=== PATIENT | male | born 1965 | race American Indian/Alaskan Native ===

== ENCOUNTER 2019-04-07 12:01 | Observation (INO) | payer OTHER ==
[2019-04-07] MEDS ORDERED: ONDANSETRON 4 MG ODT TAB PO STA (13:01)
--- NOTE | 2019-04-07 13:07 | Emergency Department Report ---
ED Fall HPI - General Chief Complaint: Fall Stated Complaint: FELL, APOLINAR AND SIDE PAIN Time Seen by Provider: 04/07/19 12:37 Source: patient Mode of arrival: Ambulatory - History of Present Illness Initial Comments: 54-year-old Afro-Bolivian male to emergency Department complaining of pain to his left chest and right knee after slipping and falling into a manhole to shoulder height. Patient states he was ambulating around the whole pulses his footing causing him to fall and landing on his feet striking the left side of his chest on the side of the mandible while falling down. He also reports a few days history of a cough but did notice some blood-tinged green mucus which started after the fall. Pain is worse with palpation and range of motion. Reports no fever, chills, sweats no diarrhea or abdominal pain no foreign travel. MD Complaint: fall -: Sudden When Fall Occurred: [address] Fall Occurred: work Loss of Consciousness: none Prolonged Down Time?: no Symptoms Prior to Fall: none (mechanical) Associated Symptoms: denies: headache, abdominal pain, hematuria, unable to walk, lightheaded, vertigo, confusion - Related Data Allergies Allergy/AdvReac Type Severity Reaction Status Date / Time No Known Allergies Allergy Unverified 04/07/19 12:07 ED Review of Systems ROS: Stated complaint: FELL, APOLINAR AND SIDE PAIN Other details as noted in HPI Comment: All other systems reviewed and negative ED Past Medical Hx - Past Medical History Previous Medical History?: Yes Additional medical history: ETOH and drug abuse - Surgical History Past Surgical History?: Yes Additional Surgical History: bleeding ulcer - Social History Smoking Status: Unknown if ever smoked ED Physical Exam - General Limitations: No Limitations General appearance: alert, in no apparent distress - Head Head exam: Present: atraumatic, normocephalic - Eye Eye exam: Present: normal appearance - ENT ENT exam: Present: mucous membranes moist - Neck Neck exam: Present: normal inspection - Respiratory Respiratory exam: Present: normal lung sounds bilaterally, chest wall tenderness (past medical history left chest wall with a small abrasion to the left flank and the rib torso region. There is mild swelling noted. No lift T's disease or thrills are noted.). Absent: respiratory distress - Cardiovascular Cardiovascular Exam: Present: regular rate, normal rhythm. Absent: systolic murmur, diastolic murmur, rubs, gallop - GI/Abdominal GI/Abdominal exam: Present: soft, normal bowel sounds - Rectal Rectal exam: Present: deferred - Extremities Exam Extremities exam: Present: normal inspection, full ROM, tenderness (there is matt e tenderness and swelling to the right knee pain with range of motion all range of motion gait is antalgic.), normal capillary refill, joint swelling. Absent: pedal edema, calf tenderness - Back Exam Back exam: Present: normal inspection - Neurological Exam Neurological exam: Present: alert, oriented X3, CN II-XII intact, normal gait - Psychiatric Psychiatric exam: Present: normal affect, normal mood - Skin Skin exam: Present: warm, dry, intact, normal color. Absent: rash ED Course Vital Signs 04/07/19 04/07/19 12:07 15:25 Temperature 97.3 F L Pulse Rate 109 H 99 H Respiratory 18 16 Rate Blood Pressure 137/92 Blood Pressure 131/87 [Left] O2 Sat by Pulse 97 98 Oximetry - Consultations Consultation #1: 04/07/19 15:36 Case discussed with general surgery plan is to have the patient admitted for observation and pain control will reevaluate chest x-ray in the morning and utilize incentive spirometry during the hospital visit and upon his discharge ED Medical Decision Making - Radiology Data Radiology results: [place] [address] XRay Report Signed Patient: EVER PARKER MR#: [id number] 35 : 1965 Acct:[id number] Age/Sex: 54 / M ADM Date: 04/07/19 Loc: ED Attending Dr: Ordering Physician: NARINDER SNYDER Date of Service: 04/07/19 Procedure(s): XR knee 4+V RT Accession Number(s): [id number] cc: NARINDER SNYDER Fluoro Time In Minutes: Right knee 4 views INDICATION: Right knee pain following injury IMPRESSION: There is a large right knee effusion. No fracture or subluxation is identified. Signer Name: Lion Yoder MD Signed: 04/07/2019 2:33 PM Workstation Name: [id number] Transcribed By: BC Dictated By: Lion Yoder MD Electronically Authenticated By: Lion Yoder MD Signed Date/Time: 04/07/19 1433 DD/ 1432 [facility] [address] [place] [address] Cat Scan Report Signed Patient: EVER PARKER MR#: [id number] 35 : 1965 Acct:[id number] Age/Sex: 54 / M ADM Date: 04/07/19 Loc: ED Attending Dr: Ordering Physician: NARINDER SNYDER Date of Service: 04/07/19 Procedure(s): CT chest wo con Accession Number(s): [id number] cc: NARINDER SNYDER CT CHEST WITHOUT CONTRAST INDICATION / CLINICAL INFORMATION: chest pain, chest trauma, hemoptysis. TECHNIQUE: Axial CT images were obtained through the chest without contrast. All CT scans at this location are performed using CT dose reduction for ALARA by means of automated exposure control. COMPARISON: None available. FINDINGS: HEART: No significant abnormality. THORACIC AORTA: No significant abnormality. MEDIASTINUM and LOUISE: No significant abnormality. Lungs/pleura: Small left pleural effusion with tiny left apical pneumothorax. There is bibasilar atelectasis, left worse than right. ADDITIONAL FINDINGS: None. UPPER ABDOMEN: Liver appears mildly enlarged. SKELETAL SYSTEM: Mildly displaced left posterior ninth rib fracture. IMPRESSION: 1. Small left hydropneumothorax, as above 2. Displaced left ninth rib fracture posteriorly. Signer Name: Lion Yoder MD Signed: 04/07/2019 2:13 PM Workstation Name: [id number] Transcribed By: BC Dictated By: Lion Yoder MD Electronically Authenticated By: Lion Yoder MD Signed Date/Time: 04/07/19 1413 DD/ 141 TD/TT: - Medical Decision Making 54-year-old -Bolivian male status post trip and fall in a manhole that showed a high resulting in some abrasion and bruising to the left rib region associated with pain. CT scan doesn't support a tiny left apical pneumothorax and he does have a large right knee effusion no fracture to the ED is noted. However there is a mildly displaced left posterior ninth rib fracture that is associated. Discussed the case with general surgery plan is to admit for observation and will repeat chest x-ray in the morning during his hospital visit will have him utilize incentive spirometry and incorporate analgesic control. Dr. Quintana is aware and also agrees of the admission as well. Attending is Dr. Alejandro is aware of the findings of the pneumothorax and admission Critical care attestation.: If time is entered above; I have spent that time in minutes in the direct care of this critically ill patient, excluding procedure time. ED Disposition Clinical Impression: Fracture of rib of left side, Pneumothorax on left Disposition: DC-09 OP ADMIT IP TO THIS HOSP Is pt being admited?: Yes Does the pt Need Aspirin: No Condition: Fair
[2019-04-07] MEDS: MORPHINE 4 MG/1 ML INJ IM ONE ×2 (13:23→15:54)
--- NOTE | 2019-04-07 14:17 | Cat Scan Report ---
CT CHEST WITHOUT CONTRAST INDICATION / CLINICAL INFORMATION: chest pain, chest trauma, hemoptysis. TECHNIQUE: Axial CT images were obtained through the chest without contrast. All CT scans at this location are p erformed using CT dose reduction for ALARA by means of automated exposure control. COMPARISON: None available. FINDINGS: HEART: No significant abnormality. THORACIC AORTA: No significant abnormality. MEDIASTINUM and LOUISE: No significant abnormality. Lungs/pleura: Small left pleural effusion with tiny left apical pneumothorax. There is bibasilar atel ectasis, left worse than right. ADDITIONAL FINDINGS: None. UPPER ABDOMEN: Liver appears mildly enlarged. SKELETAL SYSTEM: Mildly displaced left posterior ninth rib fracture. IMPRESSION: 1. Small left hydropneumothorax, as above 2. Displaced left ninth rib fracture posteriorly. Signer Name: Lion Yoder MD Signed: 04/07/2019 2:13 PM Workstation Name: [id number]
--- NOTE | 2019-04-07 14:37 | XRay Report ---
Right knee 4 views INDICATION: Right knee pain following injury IMPRESSION: There is a large right knee effusion. No fracture or subluxation is identified. Signer Name: Lion Yoder MD Signed: 04/07/2019 2:33 PM Workstation Name: [id number]
[2019-04-07] MEDS ORDERED: ACETAMINOPHEN 325 MG TAB PO PRN (15:41)
[2019-04-07] MEDS ORDERED: ONDANSETRON 4 MG/2 ML INJ IV PRN (15:41)
[2019-04-07] MEDS ORDERED: ALBUTEROL 2.5 MG/3 ML NEBU IH PRN (15:41)
[2019-04-07] MEDS ORDERED: MORPHINE 4 MG/1 ML INJ IV STA (15:48)
--- NOTE | 2019-04-07 16:00 | History and Physical Report ---
History of Present Illness Chief complaint: I fell History of present illness: 54 YO Male no PMH presents to ED for evaluation. Pt states that he was in his usual state of health and was ambulating and fell into a manhole. Pt states that he fell into the manhole striking the left side of his chest. -year-old Afro-Iranian male to emergency Department complaining of pain to his left chest and right knee after slipping and falling into a manhole to shoulder height. Patient transported to [facility]. Pt seen and evaluated in ED and found to have small Left Pneumothorax. Surgery team consulted in ED. Pt placed in observation status and admitted to medical floor. Pt denies fever, chills, CP, Palpitations, Syncope, vertigo, seizure, headache, blurred vision, or recent ill contacts. Past History Past Medical History: other (see hpi) Past Surgical History: Other (endoscopy) Social history: single, smoking, alcohol abuse Family history: no significant family history Medications and Allergies Allergies Allergy/AdvReac Type Severity Reaction Status Date / Time No Known Allergies Allergy Unverified 04/07/19 12:07 Home Medications Medication Instructions Recorded Confirmed Last Taken Type No Known Home Medications [No 04/07/19 04/07/19 Unknown History Reported Home Medications] Active Meds: Active Medications Acetaminophen (Tylenol) 650 mg PO Q4H PRN PRN Reason: Pain MILD(1-3)/Fever >100.5/JERONIMO Albuterol (Proventil) 2.5 mg IH Q4HRT PRN PRN Reason: Shortness Of Breath Ondansetron HCl (Zofran) 4 mg IV Q8H PRN PRN Reason: Nausea And Vomiting Oxycodone/Acetaminophen (Percocet 5/325) 1 tab PO Q6H PRN PRN Reason: Pain, Moderate (4-6) Sodium Chloride (Sodium Chloride Flush Syringe 10 Ml) 10 ml IV BID DANIEL Sodium Chloride (Sodium Chloride Flush Syringe 10 Ml) 10 ml IV PRN PRN PRN Reason: LINE FLUSH Review of Systems Constitutional: no weight loss, no weight gain, no fever, no chills Ears, nose, mouth and throat: no ear pain, no tinnitis, no decreased hearing, no nose pain, no nasal congestion, no sinus pressure Cardiovascular: no chest pain, no orthopnea, no palpitations, no rapid/irregular heart beat, no edema, no lightheadedness, no shortness of breath Respiratory: pain, no cough, no cough with sputum, no excessive sputum, no shortness of breath, no dyspnea on exertion, no wheezing, no pleurisy, no snoring Gastrointestinal: no abdominal pain, no nausea, no vomiting Genitourinary Male: no hematuria, no flank pain, no discharge, no urinary frequency, no urinary hesitancy, no nocturia Rectal: no pain, no incontinence, no bleeding Musculoskeletal: no neck stiffness, no shooting arm pain, no arm numbness/tingling, no low back pain, no leg numbness/tingling, no redness of joints Integumentary: no rash, no pruritis, no redness, no sores, no wounds Neurological: no head injury, no transient paralysis, no numbness, no tingling, no seizures, no syncope, no ataxia Psychiatric: no anxiety, no memory loss, no change in sleep habits, no insomnia, no change in appetite, no suicidal ideation, no disorientation, no hallucinations Endocrine: no cold intolerance, no polyphagia, no polydipsia, no polyuria, no nocturia, no excessive sweating Hematologic/Lymphatic: no easy bruising, no easy bleeding, no lymphadenopathy, no lymphedema Allergic/Immunologic: no urticaria, no allergic rhinitis, no persistent infections, no anaphylaxis Exam - Constitutional Vitals: Temp Pulse Resp BP Pulse Ox 97.3 F L 99 H 16 149/101 99 04/07/19 12:07 04/07/19 15:50 04/07/19 15:50 04/07/19 15:50 04/07/19 15:50 General appearance: Present: mild distress - EENT Eyes: Present: PERRL ENT: hearing intact, clear oral mucosa - Neck Neck: Present: supple, normal ROM - Respiratory Respiratory effort: normal Respiratory: bilateral: CTA - Cardiovascular Heart Sounds: Present: S1 & S2. Absent: rub, click - Extremities Extremities: pulses symmetrical, No edema Peripheral Pulses: within normal limits - Abdominal General gastrointestinal: Present: soft, non-tender, non-distended, normal bowel sounds Male genitourinary: Present: normal - Integumentary Integumentary: Present: clear, warm, dry - Musculoskeletal Musculoskeletal: gait normal, strength equal bilaterally - Psychiatric Psychiatric: appropriate mood/affect, intact judgment & insight - Neurologic Neurologic: CNII-XII intact, moves all extremities Results - Labs CBC & Chem 7: 04/07/19 15:37 Assessment and Plan - Patient Problems (1) Fracture of rib of left side Current Visit: Yes Status: Acute Qualifiers: Encounter type: initial encounter Plan to address problem: Pain control, supportive care (2) Pneumothorax on left Current Visit: Yes Status: Acute Plan to address problem: Chest X ray, repeat cxr in am, supplemental oxygen, incentive spirometry, pulse oximetry. (3) DVT prophylaxis Current Visit: Yes Status: Acute Plan to address problem: SCD to BLE while in be, Pt ambulatory
[2019-04-07 16:07] LABS: Basophils # (Auto) 0.1 K/mm3 (0.0-0.1); Basophils % (Auto) 1.1 % (0.0-1.8); Eosinophils # (Auto) 0.1 K/mm3 (0.0-0.4); Eosinophils % (Auto) 0.9 % (0.0-4.3); Hematocrit 39.8 % (35.5-45.6); Lymphocytes # (Auto) 1.5 K/mm3 (1.2-5.4); Lymphocytes % (Auto) 19.2 % (13.4-35.0); Mean Corpuscular HGB Conc 33 % (32-34); Mean Corpuscular Volume 89 fl (84-94); Monocytes # (Auto) 0.7 K/mm3 (0.0-0.8); Monocytes % (Auto) 8.7 % (0.0-7.3); Platelet Count 160 K/mm3 (140-440); Red Blood Count 4.47 M/mm3 (3.65-5.03); Red Cell Distribution Width 15.5 % (13.2-15.2)
[2019-04-07] MEDS ORDERED: THIAMINE 100 MG, FOLIC ACID 1 MG, MULTIPLE VITAMIN INJ, ADULT 10 ML in SODIUM CHLORIDE ... IV ONE (18:00)
[2019-04-07] MEDS: oxyCODONE /ACETAMINOPHEN 5-325MG TAB PO PRN (19:54)
[2019-04-08] MEDS: guaiFENesin 200 MG TAB PO PRN (04:14)
[2019-04-08] MEDS: oxyCODONE /ACETAMINOPHEN 5-325MG TAB PO PRN ×4 (04:14→21:12)
--- NOTE | 2019-04-08 09:49 | XRay Report ---
CHEST 1 VIEW INDICATION / CLINICAL INFORMATION: follow up for hydropneumothorax. COMPARISON: None available. FINDINGS: SUPPORT DEVICES: None. HEART / MEDIASTINUM: No significant abnormality. LUNGS / PLEURA: Minimal left apical pneumothorax identified. The left ninth rib fracture is again not ed. Signer Name: Lion Yoder MD Signed: 04/08/2019 9:45 AM Workstation Name: [id number]
[2019-04-08] MEDS ORDERED: ENOXAPARIN 60 MG/0.6 ML INJ SUB-Q SCH (10:00)
[2019-04-08] MEDS: ENOXAPARIN 40 MG/0.4 ML INJ SUB-Q SCH (10:29)
[2019-04-08] MEDS ORDERED: MORPHINE 2 MG/1 ML INJ IV PRN (10:31)
--- NOTE | 2019-04-08 10:34 | Progress Note ---
Assessment and Plan Assessment and plan: Left hydropneumothorax s/p fall -Improving per CXR on 04/08 -Patient clinically stable -Continue PRN neb tx Left 9th rib fracture 2/2 fall -Continue PRN narcotics for pain control Left large knee effusion -Will consult orthopedic surgery for possible aspiration -Continue PRN narcotics for pain control DVT prophylaxis with Lovenox Disposition: For discharge when medically stable History Interval history: Patient complained of left rib pain Hospitalist Physical - Constitutional Vitals: Temp Pulse Resp BP Pulse Ox 98.4 F 78 20 125/77 100 04/08/19 05:17 04/08/19 05:17 04/08/19 05:17 04/08/19 05:17 04/08/19 05:17 General appearance: Present: no acute distress, well-nourished - EENT Eyes: Present: PERRL, EOM intact ENT: hearing intact, clear oral mucosa - Neck Neck: Present: supple - Respiratory Respiratory effort: normal Respiratory: bilateral: CTA - Cardiovascular Rhythm: regular Heart Sounds: Present: S1 & S2 - Extremities Extremities: No edema - Abdominal General gastrointestinal: soft, non-tender, non-distended, normal bowel sounds - Integumentary Integumentary: Present: clear, warm, dry - Psychiatric Psychiatric: appropriate mood/affect - Neurologic Neurologic: CNII-XII intact Results - Labs CBC & Chem 7: 04/07/19 15:37 Labs: Laboratory Last Values WBC 7.7 K/mm3 (4.5-11.0) 04/07/19 15:37 RBC 4.47 M/mm3 (3.65-5.03) 04/07/19 15:37 Hgb 13.0 gm/dl (11.8-15.2) 04/07/19 15:37 Hct 39.8 % (35.5-45.6) 04/07/19 15:37 MCV 89 fl (84-94) 04/07/19 15:37 MCH 29 pg (28-32) 04/07/19 15:37 MCHC 33 % (32-34) 04/07/19 15:37 RDW 15.5 % (13.2-15.2) H 04/07/19 15:37 Plt Count 160 K/mm3 (140-440) 04/07/19 15:37 Lymph % (Auto) 19.2 % (13.4-35.0) 04/07/19 15:37 Butler % (Auto) 8.7 % (0.0-7.3) H 04/07/19 15:37 Eos % (Auto) 0.9 % (0.0-4.3) 04/07/19 15:37 Baso % (Auto) 1.1 % (0.0-1.8) 04/07/19 15:37 Lymph # 1.5 K/mm3 (1.2-5.4) 04/07/19 15:37 Butler # 0.7 K/mm3 (0.0-0.8) 04/07/19 15:37 Eos # 0.1 K/mm3 (0.0-0.4) 04/07/19 15:37 Baso # 0.1 K/mm3 (0.0-0.1) 04/07/19 15:37 Seg Neutrophils % 70.1 % (40.0-70.0) H 04/07/19 15:37 Seg Neutrophils # 5.4 K/mm3 (1.8-7.7) 04/07/19 15:37 Active Medications - Current Medications Current Medications: Generic Name Dose Route Start Last Admin Trade Name Freq PRN Reason Stop Dose Admin Acetaminophen 650 mg 04/07/19 15:41 Tylenol PO Q4H PRN Pain MILD(1-3)/Fever >100.5/JERONIMO Albuterol 2.5 mg 04/07/19 15:41 Proventil IH Q4HRT PRN Shortness Of Breath Enoxaparin Sodium 40 mg 04/08/19 10:00 Enoxaparin SUB-Q QDAY@1000 [facility] Guaifenesin 200 mg 04/07/19 23:33 04/08/19 04:14 Robitussin PO 200 mg Q6H PRN Administration Cough Ondansetron HCl 4 mg 04/07/19 15:41 Zofran IV Q8H PRN Nausea And Vomiting Oxycodone/Acetaminophen 1 tab 04/07/19 15:41 04/08/19 04:14 Percocet 5/325 PO 1 tab Q6H PRN Administration Pain, Moderate (4-6) Sodium Chloride 10 ml 04/07/19 22:00 04/07/19 23:12 Sodium Chloride Flush Syringe 10 Ml IV 10 ml BID DANIEL Administration Sodium Chloride 10 ml 04/07/19 15:41 Sodium Chloride Flush Syringe 10 Ml IV PRN PRN LINE FLUSH
[2019-04-09 05:20] LABS: Hematocrit 35.5 % (35.5-45.6); Hemoglobin 11.6 gm/dl (11.8-15.2); Mean Corpuscular HGB Conc 33 % (32-34); Mean Corpuscular Volume 90 fl (84-94); Platelet Count 162 K/mm3 (140-440); Red Blood Count 3.94 M/mm3 (3.65-5.03); Red Cell Distribution Width 15.3 % (13.2-15.2)
[2019-04-09 05:41] LABS: BUN/Creatinine Ratio 10; Blood Urea Nitrogen 6 mg/dL (9-20); Calcium 8.6 mg/dL (8.4-10.2); Hemolysis Index 2
[2019-04-09] MEDS: oxyCODONE /ACETAMINOPHEN 5-325MG TAB PO PRN ×2 (08:10→18:47)
[2019-04-09] MEDS: ENOXAPARIN 40 MG/0.4 ML INJ SUB-Q SCH (10:23)
--- NOTE | 2019-04-09 15:02 | Progress Note ---
Assessment and Plan Assessment and plan: 54-year-old man who presents to the hospital status post fall. He fell into a manhole. Then complained of chest pain, right knee pain which occurred after the trauma. Small left hydropneumothorax Displaced left ninth rib fracture posteriorly Pain medications and oxygen as needed. Right knee effusion Appears to be improving on exam, Ambulatory dysfunction PT consult for gait training Disposition; home tomorrow after patient has been seen by PT. DVT prophylaxis; early ambulation History Interval history: Complaining of pain in his ribs and pain in his right knee. States that they are improving. But states that his gait is still unsteady. Review of systems Constitutional: No fevers, no malaise, no joint pains CVS: No chest pain, no orthopnea, no pedal edema GI: No abdominal pain, no diarrhea, no vomiting, no constipation Respiratory: No shortness of breath, no wheezing, no coughing Hospitalist Physical - Physical exam Narrative exam: General.: Mild distress HEENT: Moist mucous membranes, extraocular muscles intact, no lymphadenopathy Neck: supple Cardiac: S1-S2 heard Lungs: clear to auscultation bilaterally Abdomen: soft , nontender, nondistended, bowel sounds positive Extremities: Minimal right knee effusion, not warm, tender to touch but full range of motion Skin: no rash or lesions Neurologic: no gross focal deficits Psych: calm, and cooperative - Constitutional Vitals: Temp Pulse Resp BP Pulse Ox 98.2 F 62 16 121/70 100 04/09/19 11:00 04/09/19 11:00 04/09/19 11:00 04/09/19 11:00 04/09/19 11:00 General appearance: Present: no acute distress, well-nourished Results - Labs CBC & Chem 7: 04/09/19 04:23 04/09/19 04:23 Labs: Laboratory Last Values WBC 4.1 K/mm3 (4.5-11.0) L 04/09/19 04:23 RBC 3.94 M/mm3 (3.65-5.03) 04/09/19 04:23 Hgb 11.6 gm/dl (11.8-15.2) L 04/09/19 04:23 Hct 35.5 % (35.5-45.6) 04/09/19 04:23 MCV 90 fl (84-94) 04/09/19 04:23 MCH 29 pg (28-32) 04/09/19 04:23 MCHC 33 % (32-34) 04/09/19 04:23 RDW 15.3 % (13.2-15.2) H 04/09/19 04:23 Plt Count 162 K/mm3 (140-440) 04/09/19 04:23 Lymph % (Auto) 19.2 % (13.4-35.0) 04/07/19 15:37 Weber % (Auto) 8.7 % (0.0-7.3) H 04/07/19 15:37 Eos % (Auto) 0.9 % (0.0-4.3) 04/07/19 15:37 Baso % (Auto) 1.1 % (0.0-1.8) 04/07/19 15:37 Lymph # 1.5 K/mm3 (1.2-5.4) 04/07/19 15:37 Weber # 0.7 K/mm3 (0.0-0.8) 04/07/19 15:37 Eos # 0.1 K/mm3 (0.0-0.4) 04/07/19 15:37 Baso # 0.1 K/mm3 (0.0-0.1) 04/07/19 15:37 Seg Neutrophils % 70.1 % (40.0-70.0) H 04/07/19 15:37 Seg Neutrophils # 5.4 K/mm3 (1.8-7.7) 04/07/19 15:37 Sodium 137 mmol/L (137-145) 04/09/19 04:23 Potassium 3.9 mmol/L (3.6-5.0) 04/09/19 04:23 Chloride 99.7 mmol/L (98-107) 04/09/19 04:23 Carbon Dioxide 24 mmol/L (22-30) 04/09/19 04:23 Anion Gap 17 mmol/L 04/09/19 04:23 BUN 6 mg/dL (9-20) L 04/09/19 04:23 Creatinine 0.6 mg/dL (0.8-1.5) L 04/09/19 04:23 Estimated GFR > 60 ml/min 04/09/19 04:23 BUN/Creatinine Ratio 10 % 04/09/19 04:23 Glucose 95 mg/dL (75-100) 04/09/19 04:23 Calcium 8.6 mg/dL (8.4-10.2) 04/09/19 04:23 Active Medications - Current Medications Current Medications: Generic Name Dose Route Start Last Admin Trade Name Freq PRN Reason Stop Dose Admin Acetaminophen 650 mg 04/07/19 15:41 Tylenol PO Q4H PRN Pain MILD(1-3)/Fever >100.5/JERONIMO Albuterol 2.5 mg 04/07/19 15:41 Proventil IH Q4HRT PRN Shortness Of Breath Enoxaparin Sodium 40 mg 04/08/19 10:00 04/09/19 10:23 Enoxaparin SUB-Q 40 mg QDAY@1000 DANIEL Administration Guaifenesin 200 mg 04/07/19 23:33 04/08/19 04:14 Robitussin PO 200 mg Q6H PRN Administration Cough Morphine Sulfate 2 mg 04/08/19 10:31 Morphine IV Q4H PRN Pain , Severe (7-10) Ondansetron HCl 4 mg 04/07/19 15:41 Zofran IV Q8H PRN Nausea And Vomiting Oxycodone/Acetaminophen 1 tab 04/08/19 10:32 04/09/19 08:10 Percocet 5/325 PO 1 tab Q4H PRN Administration Pain, Moderate (4-6) Sodium Chloride 10 ml 04/07/19 22:00 04/08/19 21:13 Sodium Chloride Flush Syringe 10 Ml IV 10 ml BID DANIEL Administration Sodium Chloride 10 ml 04/07/19 15:41 Sodium Chloride Flush Syringe 10 Ml IV PRN PRN LINE FLUSH
[2019-04-10] MEDS: ENOXAPARIN 40 MG/0.4 ML INJ SUB-Q SCH (10:49)
[2019-04-10] MEDS: oxyCODONE /ACETAMINOPHEN 5-325MG TAB PO PRN (10:49)
[2019-04-10] MEDS: guaiFENesin 200 MG TAB PO PRN (10:49)
[2019-04-10 12:24] VITALS: BP 113/74
--- NOTE | 2019-04-10 12:52 | Discharge Summary ---
Providers - Providers Date of Admission: 04/07/19 15:41 Attending physician: DINORAH BULLOCK MD 04/09/19 08:00 Consult to Physician [CONS] Routine Comment: Consulting Provider: VANDANA MELÉNDEZ Physician Instructions: Reason For Exam: Large RT knee effusion 04/09/19 15:02 Physical Therapy Evaluation and Treat [CONS] Routine Comment: Reason For Exam: ataxia Primary care physician: [employer] Hospitalization Condition: Fair Hospital course: 54-year-old man who presents to the hospital status post fall. He fell into a manhole. Then complained of chest pain, right knee pain which occurred after the trauma. Small left hydropneumothorax Displaced left ninth rib fracture posteriorly He received pain medications and oxygen. He was reassured prior to discharge Right knee effusion Was likely due to trauma, improved on daily exam. Ambulatory dysfunction He received physical therapy who recommended a walker for him, case management m kathrin aware that he needs a walker prior to discharge Disposition: DC-01 TO HOME OR SELFCARE Time spent for discharge: 33 mins Core Measure Documentation - Palliative Care Palliative Care/ Comfort Measures: Not Applicable - Core Measures Any of the following diagnoses?: none Exam - Constitutional Vitals: Temp Pulse Resp BP Pulse Ox 98.3 F 67 18 113/74 99 04/10/19 11:52 04/10/19 11:52 04/10/19 11:52 04/10/19 11:52 04/10/19 11:52 General appearance: Present: no acute distress, well-nourished - EENT Eyes: Present: PERRL ENT: hearing intact, clear oral mucosa - Neck Neck: Present: supple, normal ROM - Respiratory Respiratory effort: normal Respiratory: bilateral: CTA - Cardiovascular Heart Sounds: Present: S1 & S2. Absent: rub, click - Extremities Extremities: pulses symmetrical, No edema Peripheral Pulses: within normal limits - Abdominal General gastrointestinal: Present: soft, non-tender, non-distended, normal bowel sounds Male genitourinary: Present: normal - Integumentary Integumentary: Present: clear, warm, dry - Musculoskeletal Musculoskeletal: gait normal, strength equal bilaterally - Psychiatric Psychiatric: appropriate mood/affect, intact judgment & insight - Neurologic Neurologic: CNII-XII intact, moves all extremities Plan Follow up with: PRIMARY CARE, [Primary Care Provider] - 7 Days Prescriptions: oxyCODONE /ACETAMINOPHEN [Percocet 5/325 mg] 1 tab PO Q4H PRN #20 tablet PRN Reason: Pain, Moderate (4-6)
== END 2019-04-10 14:10 | disposition home or self-care (01) ==
LOC: ED 12:01 → 3A 15:41
PROVIDERS: ADMIT Internal Medicine; ATTEND Internal Medicine
DX: S22.32XA Fracture of one rib, left side, initial encounter for closed fracture (principal); J93.9 Pneumothorax, unspecified; W01.0XXA Fall on same level from slipping, tripping and stumbling without subsequent striking against object, initial encounter; Y93.89 Activity, other specified; Y92.89 Other specified places as the place of occurrence of the external cause; Y99.8 Other external cause status
CPT/HCPCS: 36415; 71045; 71250; 73564; 80048; 85025; 85027; 96365; 96366; 96372; 97161; 99284; G0378; J1650; J2270; J3411; J7030; Q0162